=== PATIENT | male | born 1950 | race Caucasian/White ===

== ENCOUNTER 2020-10-10 10:36 | Emergency (ER) | payer OTHER, BC ==
[2020-10-10] MEDS ORDERED: KETOROLAC 30 MG/ML INJ ONE (12:45)
[2020-10-10 12:52] LABS: Potassium 4.2 mmol/L (3.5-5.1)
[2020-10-10 12:53] LABS: Urine Blood Trace-lysed (Negative); Urine Glucose Negative (Negative); Urine Protein 2+ (Negative); Urine Specific Gravity >=1.030 (1.005-1.030); Urine pH 5.5 (5.0-7.0)
[2020-10-10 12:53] LABS: Absolute Lymphocytes (CBC) 1.7 K/uL (0.7-4.9); Basophils % 0.7 % (0-1.3); Lymphocytes % 14.6 % (15.3-44.8); MPV 9.5 fL (7.6-11.3); RBC Red Blood Cell Count 5.41 M/uL (4.33-5.43)
--- NOTE | 2020-10-10 13:25 | RAD REPORT ---
EXAM DESCRIPTION: CT - Stone Protocol - 10/10/2020 12:58 pm CLINICAL HISTORY: Abdominal pain. Left flank pain COMPARISON: None. TECHNIQUE: Computed axial tomography of the abdomen pelvis was obtained without oral or IV contrast. Lack of IV and oral contrast limits evaluation of solid organs, bowel, and vessels. Coronal reformat lulu images were obtained and reviewed. All CT scans are performed using dose optimization technique as appropriate and may include automated exposure control or mA/KV adjustment according to patient size. FINDINGS: A renal calculus is not seen. An ureteral calculus is not noted. A bladder calculus is not present. A 3 millimeter noncalcified left lower lobe nodule. 3 millimeter calcified left lower lobe nodule als o present. Fatty liver. Cholelithiasis. Borderline gallbladder distention Spleen, pancreas and adrenals appear grossly normal Diverticula stem from the colon without evidence of diverticulitis. The appendix appears normal 25 millimeter lytic lesion within L3 vertebral body IMPRESSION: Negative for a genitourinary calculus Cholelithiasis with borderline gallbladder distention 3 millimeter noncalcified left lower lobe nodule. If patient is high risk follow up CT chest [id number] yumiko hs would be recommended 25 millimeter lytic lesion L3 vertebral body probably but not definitivelya hemangioma. Follow-up MRI lumbar spine recommended in 3 months. Alternatively, bone scan could be
--- NOTE | 2020-10-10 13:58 | EDPHYS ---
Physician Documentation [facility] Name: Bernard Morrissey Jr Age: 70 yrs Sex: Male : 1950 Arrival Date: 10/10/2020 Time: 10:40 Bed 15 Private MD: ED Physician Stefano Zeng HPI: 10/10 16:32 This 70 yrs old Male presents to ER via Ambulatory with complaints of Low kdr Back Pain. 16:32 The patient presents with pain that is acute, with no known mechanism of injury. The kdr symptoms are located in the low back, left mid back. The pain does not radiate. The problem was sustained from unknown cause. Onset: The symptoms/episode began/occurred gradually, 5 day(s) ago. Modifying factors: The patient symptoms are alleviated by nothing, the patient symptoms are aggravated by movement, standing. Associated signs and symptoms: The patient has no apparent associated signs or symptoms. Severity of symptoms: At their worst the symptoms were mild, moderate, just prior to arrival, in the emergency department the symptoms are unchanged. The patient has not experienced similar symptoms in the past. The patient has not recently seen a physician. Historical: - Allergies: 11:18 No Known Allergies; ll1 - PMHx: 11:18 Hypertension; BPH; ll1 - PSHx: 11:18 Hernia repair; ll1 - Immunization history:: Client reports receiving the 2nd dose of the Covid vaccine, Flu vaccine is up to date. - Social history:: Smoking status: Patient denies any tobacco usage or history of. ROS: 16:32 Constitutional: Negative for fever, chills, and weight loss, Eyes: Negative for injury, kdr pain, redness, and discharge, ENT: Negative for injury, pain, and discharge, Neck: Negative for injury, pain, and swelling, Cardiovascular: Negative for chest pain, palpitations, and edema, Respiratory: Negative for shortness of breath, cough, wheezing, and pleuritic chest pain, Abdomen/GI: Negative for abdominal pain, nausea, vomiting, diarrhea, and constipation, : Negative for injury, bleeding, discharge, and swelling, MS/Extremity: Negative for injury and deformity, Skin: Negative for injury, rash, and discoloration, Neuro: Negative for headache, weakness, numbness, tingling, and seizure activity. Psych: Negative for depression, anxiety, suicide ideation, homicidal ideation, and hallucinations, Allergy/Immunology: Negative for hives, rash, and allergies, Endocrine: Negative for neck swelling, polydipsia, polyuria, polyphagia, and marked weight changes, Hematologic/Lymphatic: Negative for swollen nodes, abnormal bleeding, and unusual bruising. 16:32 Back: Positive for pain at rest, pain with movement, of the left mid back. Exam: 16:32 Constitutional: This is a well developed, well nourished patient who is awake, alert, kdr and in no acute distress. Head/Face: Normocephalic, atraumatic. Eyes: Pupils equal round and reactive to light, extra-ocular motions intact. Lids and lashes normal. Conjunctiva and sclera are non-icteric and not injected. Cornea within normal limits. Periorbital areas with no swelling, redness, or edema. Neck: Trachea midline, no thyromegaly or masses palpated, and no cervical lymphadenopathy. Supple, full range of motion without nuchal rigidity, or vertebral point tenderness. No Meningismus. Chest/axilla: Normal chest wall appearance and motion. Nontender with no deformity. No lesions are appreciated. Cardiovascular: Regular rate and rhythm with a normal S1 and S2. No gallops, murmurs, or rubs. Normal PMI, no JVD. No pulse deficits. Respiratory: Lungs have equal breath sounds bilaterally, clear to auscultation and percussion. No rales, rhonchi or wheezes noted. No increased work of breathing, no retractions or nasal flaring. Abdomen/GI: Soft, non-tender, with normal bowel sounds. No distension or tympany. No guarding or rebound. No evidence of tenderness throughout. Skin: Warm, dry with normal turgor. Normal color with no rashes, no lesions, and no evidence of cellulitis. MS/ Extremity: Pulses equal, no cyanosis. Neurovascular intact. Full, normal range of motion. Neuro: Awake and alert, GCS 15, oriented to person, place, time, and situation. Cranial nerves II-XII grossly intact. Motor strength 5/5 in all extremities. Sensory grossly intact. Cerebellar exam normal. Normal gait. Psych: Awake, alert, with orientation to person, place and time. Behavior, mood, and affect are within normal limits. 16:32 Back: pain, that is very mild, of the left mid back, normal spinal alignment noted, CVA tenderness, that is mild, vertebral tenderness, is not appreciated, muscle spasm, is not present. Vital Signs: 11:16 BP 158 / 86; Pulse 88; Resp 16; Temp 98.3; Pulse Ox 98% ; Height 5 ft. 9 in. (175.26 ll1 cm); Pain 9/10; MDM: 13:57 Patient medically screened. kdr 14:01 ED course: PMPAware: No records. kdr 16:32 Data reviewed: vital signs, nurses notes, lab test result(s). Counseling: I had a kdr detailed discussion with the patient and/or guardian regarding: the historical points, exam findings, and any diagnostic results supporting the discharge/admit diagnosis, lab results, radiology results, the need for outpatient follow up. Special discussion: I discussed with the patient/guardian in detail that at this point there is no indication for admission to the hospital. It is understood, however, that if the symptoms persist or worsen the patient needs to return immediately for re-evaluation. 10/10 12:14 Order name: Basic Metabolic Panel; Complete Time: 13:45 [facility] 10/10 12:14 Order name: CBC with Diff; Complete Time: 13:45 [facility] 10/10 12:14 Order name: IV Saline Lock; Complete Time: 12:34 [facility] 10/10 12:14 Order name: CT Stone Protocol; Complete Time: 13:45 [facility] 10/10 12:53 Order name: Urine Dipstick-Ancillary; Complete Time: 13:45 [facility] 10/10 12:14 Order name: Labs collected and sent; Complete Time: 12:34 [facility] 10/10 12:14 Order name: Urine Dipstick-Ancillary (obtain specimen); Complete Time: 13:16 kdr Administered Medications: 12:33 Drug: TORadol - (ketorolac) 15 mg Route: IVP; Site: right antecubital; hb 13:00 Follow up: Response: No adverse reaction hb Disposition: 10/10/20 13:57 Discharged to Home. Impression: Low back pain, L3 Lytic Lesion. - Condition is Stable. - Discharge Instructions: Musculoskeletal Pain, Back Pain, Adult, [id number]. - Prescriptions for Ibuprofen 800 mg Oral Tablet - take 1 tablet by ORAL route every 12 hours As needed take with food; 20 tablet. Robaxin 500 mg Oral Tablet - take 2 tablets by ORAL route every 6 hours As needed Take one or two tablets as needed for msucle pain and cramps; 40 tablet. Tramadol 50 mg Oral Tablet - take 1 tablet by ORAL route every 8 hours as needed; 16 tablet. - Medication Reconciliation Form, Thank You Letter, Antibiotic Education, Prescription Opioid Use form. - Follow up: Private Physician; When: 2 - 3 days; Reason: If symptoms return, Further diagnostic work-up, Recheck today's complaints, Continuance of care, Re-evaluation by your physician. - Problem is new. - Symptoms have improved. Signatures: Dispatcher [employer] EDMS Stefano Zeng MD MD kdr Josefina Hart RN RN Dennis South RN RN ll1 Corrections: (The following items were deleted from the chart) 14:13 13:57 10/10/2020 13:57 Discharged to Home. Impression: Low back pain; L3 Lytic Lesion. hb Condition is Stable. Forms are Medication Reconciliation Form, Thank You Letter, Antibiotic Education, Prescription Opioid Use. Follow up: Private Physician; When: 2 - 3 days; Reason: If symptoms return, Further diagnostic work-up, Recheck today's complaints, Continuance of care, Re-evaluation by your physician. Problem is new. Symptoms have improved. kdr
--- NOTE | 2020-10-10 13:58 | ER ---
Nurse's Notes [facility] Name: Bernard Morrissey Jr Age: 70 yrs Sex: Male : 1950 Arrival Date: 10/10/2020 Time: 10:40 Bed 15 Private MD: Diagnosis: Low back pain;L3 Lytic Lesion Presentation: 10/10 11:16 Chief complaint: Patient states: L lower back pain for 5 days. No known trauma or ll1 fever. Denies dysuria. Coronavirus screen: Client denies travel out of the [place] in the last 14 days. At this time, the client does not indicate any symptoms associated with coronavirus-19. Ebola Screen: Patient denies travel to an Ebola-affected area in the 21 days before illness onset. Initial Sepsis Screen: Does the patient meet any 2 criteria? No. Patient's initial sepsis screen is negative. Does the patient have a suspected source of infection? Yes: Bone or joint infection. Risk Assessment: Do you want to hurt yourself or someone else? Patient reports no desire to harm self or others. Onset of symptoms was October 06, 2020. 11:16 Method Of Arrival: Ambulatory ll1 11:16 Acuity: QUAN 4 ll1 Historical: - Allergies: 11:18 No Known Allergies; ll1 - PMHx: 11:18 Hypertension; BPH; ll1 - PSHx: 11:18 Hernia repair; ll1 - Immunization history:: Client reports receiving the 2nd dose of the Covid vaccine, Flu vaccine is up to date. - Social history:: Smoking status: Patient denies any tobacco usage or history of. Screenin:15 Abuse screen: Denies threats or abuse. Denies injuries from another. Nutritional hb screening: No deficits noted. Tuberculosis screening: No symptoms or risk factors identified. Fall Risk Total Sheridan Fall Scale indicates Low Risk Score (25-44 pts). Fall prevention measures have been instituted. Side Rails Up X 2 Frequent Obs/Assesments occuring Family Present and informed to notify staff if they need to leave bedside As available Patient and Family Educated on Fall Prevention Program and strategies. Assessment: 11:12 General: Appears in no apparent distress. Behavior is calm, cooperative. Pain: Pain hb currently is 10 out of 10 on a pain scale. Neuro: Level of Consciousness is awake, alert, obeys commands, Oriented to person, place, time, situation. Cardiovascular: Patient's skin is warm and dry. Respiratory: Respiratory effort is even, unlabored, Respiratory pattern is regular, symmetrical. GI: No signs and/or symptoms were reported involving the gastrointestinal system. : No signs and/or symptoms were reported regarding the genitourinary system. EENT: No signs and/or symptoms were reported regarding the EENT system. Derm: Skin is pink, warm \T\ dry. Musculoskeletal: Reports left low back and flank pain. Vital Signs: 11:16 BP 158 / 86; Pulse 88; Resp 16; Temp 98.3; Pulse Ox 98% ; Height 5 ft. 9 in. (175.26 ll1 cm); Pain 9/10; ED Course: 10:40 Patient arrived in ED. bp1 11:16 Arm band placed on. ll1 11:18 Triage completed. ll1 11:25 Josefina Hart RN is Primary Nurse. hb 11:43 Stefano Zeng MD is Attending Physician. kdr 12:32 Inserted saline lock: 20 gauge in right forearm, using aseptic technique. Blood hb collected. 12:58 CT Stone Protocol In Process Unspecified. EDMS Administered Medications: 12:33 Drug: TORadol - (ketorolac) 15 mg Route: IVP; Site: right antecubital; hb 13:00 Follow up: Response: No adverse reaction hb Outcome: 13:57 Discharge ordered by . kdr 14:13 Patient left the ED. hb Signatures: Dispatcher [employer] EDMS Stefano Zeng MD MD kdr Josefina Hart RN RN Dennis South RN RN ll1 Myrtle Cespedes bp1 Corrections: (The following items were deleted from the chart) 12:34 11:23 Inserted saline lock: 22 gauge in right forearm, using aseptic technique. Blood hb collected. hb 12:34 11:12 Pain: Pain currently is 10 out of 10 on a pain scale. hb hb 12:35 11:12 GI: Reports bloating, hb hb 12:35 11:12 Musculoskeletal: Reports severe left knee pain, moderate swelling noted hb hb
[2020-10-10 14:20] VITALS: BP 158/86; TEMP 98.3; O2SAT 98
== END 2020-10-10 14:13 | disposition home or self-care (01) ==
LOC: ER 10:36
DX: M89.8X8 Other specified disorders of bone, other site (principal); I10 Essential (primary) hypertension
CPT/HCPCS: 36415; 74176; 76377; 80048; 81003; 85025; 96374; 99284